=== PATIENT | female | born 1980 | race Native Hawaiian/Other Pacific Islander ===

== ENCOUNTER 2020-09-11 20:16 | Outpatient (CLI) | payer BC | END 2020-09-11 23:59 | disposition home or self-care (01) | LOC: RAD 20:16 | PROVIDERS: ATTEND Nurse Practitioner Family | DX: M54.6 Pain in thoracic spine (principal); R10.9 Unspecified abdominal pain ==

== ENCOUNTER 2020-11-07 10:05 | Outpatient (CLI) | payer BC, OTHER ==
[~2020-11-07] VITALS: Ht 172.7 cm; Wt 95.3 kg
== END 2020-11-07 21:59 | disposition home or self-care (01) ==
LOC: INF 10:05
PROVIDERS: ATTEND Internal Medicine Endocrinology, Diabetes & Metabolism
DX: Z23 Encounter for immunization (principal); U07.1 COVID-19
CPT/HCPCS: 96365; M0244

== ENCOUNTER 2022-02-18 19:03 | Outpatient (CLI) | payer BC | END 2022-02-18 19:46 | disposition home or self-care (01) | LOC: RAD 19:03 | PROVIDERS: ATTEND Nurse Practitioner Family | DX: M25.511 Pain in right shoulder (principal) ==

== ENCOUNTER 2022-02-24 13:31 | Outpatient (CLI) | payer BC | END 2022-02-24 19:04 | disposition home or self-care (01) | LOC: MRI 13:31 | PROVIDERS: ATTEND Nurse Practitioner Family | DX: M25.511 Pain in right shoulder (principal); M79.601 Pain in right arm | CPT/HCPCS: A9576 ==